=== PATIENT | female | born 1985 | race African-American/Black ===

== ENCOUNTER 2019-05-15 00:29 | Emergency (ER) | payer MEDICAID, OTHER ==
[~2019-05-15] VITALS: Ht 157.5 cm; Wt 71.0 kg
[2019-05-15] MEDS ORDERED: KETOROLAC 30MG/ML VIAL IM ONE (04:30)
[2019-05-15] MEDS ORDERED: METHOCARBAMOL 500MG TABLET PO ONE (04:30)
[2019-05-15 06:39] VITALS: BP 114/75
== END 2019-05-15 06:42 | disposition home or self-care (01) ==
LOC: ER 00:29
DX: S09.8XXA Other specified injuries of head, initial encounter (principal); M54.5 Low back pain; W01.0XXA Fall on same level from slipping, tripping and stumbling without subsequent striking against object, initial encounter; Y93.89 Activity, other specified; Y92.89 Other specified places as the place of occurrence of the external cause; Y99.8 Other external cause status; Z98.890 Other specified postprocedural states; Z88.8 Allergy status to other drugs, medicaments and biological substances
CPT/HCPCS: 81025; 96372; 99283; J1885